=== PATIENT | male | born 1985 | race Caucasian/White ===

== ENCOUNTER 2017-11-07 20:34 | Emergency (ER) | payer BC ==
[2017-11-07 20:52] VITALS: BP 125/85; O2SAT 98
--- NOTE | 2017-11-07 21:12 | ERPHSYRPT ---
- History of Present Illness Time Seen by Provider: 11/07/17 21:00 Source: patient Exam Limitations: clinical condition Patient Subjective Stated Complaint: pt states that he has been having pain in his lt leg for the past few days and the pain started at the back of his knee and has moved u p to groin area. describes pain as tightness Triage Nursing Assessment: pt alert and oriented, answers questions approp. pt ambulatory with steady gait noted, respirations nonlabored with lungs cta. pedal pulse, cap refill, sensation to lle wnl. Physician History: PATIENT COMPLAINS OF PAIN IN HIS LEFT CALF INITIALLY 2 WEEK AGO, PAIN HAS MIGRATED BEHIND HIS LEFT KNEE AND NOW LOCALIZED TO HIS INNER LEFT THIGH. DENIES DYSPNEA, CHEST PAIN, THIGH, KNEE OR CALF SWELLING. STATES PAIN SCALE 2/ 10. Method of Injury: unknown Occurred: other (2 WEEKS AGO) Quality: constant Severity of Pain-Max: mild Severity of Pain-Current: mild Lower Extremities Pain: thigh: left Modifying Factors: Improves With: nothing Associated Symptoms: none Allergies/Adverse Reactions: No Known Drug Allergies Allergy (Verified 11/07/17 20:52) Hx Tetanus, Diphtheria Vaccination/Date Given: No Hx Influenza Vaccination/Date Given: No Hx Pneumococcal Vaccination/Date Given: No Immunizations Up to Date: No - Past Medical History Pertinent Past Medical History: No - Past Surgical History Past Surgical History: Yes - Social History Smoking Status: Never smoker Exposure to second hand smoke: No Drug Use: none Patient Lives Alone: No - Nursing Vital Signs Nursing Vital Signs: Initial Vital Signs Temperature 98.9 F 11/07/17 20:41 Pulse Rate 94 H 11/07/17 20:41 Respiratory Rate 18 11/07/17 20:41 Blood Pressure 125/85 11/07/17 20:41 O2 Sat by Pulse Oximetry 98 11/07/17 20:41 Pain Scale Pain Intensity 2 - Physical Exam General Appearance: no apparent distress Cardiovascular/Respiratory Exam: chest non-tender Legs Exam: left leg: normal inspection, soft tissue tenderness (MINIMAL POINT TENDERNESS OVER MEDIAL PROXIMAL THIGH, NO SWELLING OR ECCHYMOSIS, LEFT CALF WITHOUT TENDERNESS OR SWELLING, NEG HOMANS SIGN) Knees Exam: left knee: normal range of motion (NO JOINT LAXITY OR POLPITEAL TENDERNESS) Foot Exam: left foot: other (POPLITEAL AND PEDIS PULSES 2+) Mental Status Exam: alert, oriented x 3, cooperative SpO2 Interpretation: normal SpO2: 98 Oxygen Delivery: Room Air - Radiology Ultrasound Exam Venous Lower Extremity Ultrasound: discussed w/radiologist (NO EVIDENCE OF DVT, THICKENING OF LEFT GREATER SAPHENOUS VEIN CONSISTENT WITH PHELBITIS) Ordered Tests: Active Orders 24 hr Category Date Time Status VENOUS UNILAT/LIMITED EXTREMIT [US] Stat Exams 11/07/17 Ordered Medication Summary Discontinued Medications Generic Name Dose Route Start Last Admin Trade Name Freq PRN Reason Stop Dose Admin Cephalexin HCl 500 mg 11/07/17 22:46 Keflex 500 Mg PO 11/07/17 22:47 STAT ONE Ibuprofen 600 mg 11/07/17 22:46 Motrin 600 Mg PO 11/07/17 22:47 STAT ONE - Progress Progress: pain not gone completely Progress Note: 11/07/17 22:45 KEFLEX 500MG, MOTRIN 600MG ORALLY Counseled pt/family regarding: diagnosis, rad results - Departure Time of Disposition: 23:00 Departure Disposition: Home Clinical Impression: PHLEBITIS LEFT LOWER EXTREMITY Condition: Stable Critical Care Time: No Referrals: FRANTZ BATEMAN [Primary Care Provider] - Additional Instructions: BEGIN MOTRIN 600MG EVERY 6 HOURS NEEDED FOR PAIN. ANTIBIOTIC KEFLEX 500MG EVERY 8 HOURS FOR 10 DAYS. WATCH FOR SIGNS OF INFECTION, RED STREAKS OR ONSET OF FEVER OR CHILLS. CONSULT A PRIMARY CARE PROVIDER FOR FOLLOWUP. Prescriptions: Ibuprofen 600 mg PO Q6HPRN PRN #20 tablet PRN Reason: Pain Cephalexin Mh 500 mg [Keflex 500 mg] 500 mg PO TID #30 capsule
[2017-11-07 22:37] VITALS: PULSE 73
[2017-11-07] MEDS ORDERED: KEFLEX 500 MG PO ONE (22:46)
[2017-11-07] MEDS ORDERED: MOTRIN 600 MG PO ONE (22:46)
[2017-11-07] MEDS ORDERED: KEFLEX 500 MG ONE (22:52)
[2017-11-07] MEDS ORDERED: MOTRIN 600 MG ONE (22:52)
--- NOTE | 2017-11-08 08:49 | XRAY ---
Indication: Left thigh pain. Two-dimensional sonogram and color Doppler imaging of the major venous vessels of the left leg was performed. Comparison: None No thrombus seen in the examined deep venous vessels of the left leg. Patent veins demonstrates normal compressibility. Venous waveforms are normal with and without augmentation. Greater saphenous vein at the level of the thigh demonstrates wall thickening narrowing the lumen favoring phlebitis. Impression: Left leg negative for DVT. Incidental greater saphenous vein phlebitis. Comment: Preliminary report was given.
== END 2017-11-07 23:03 | disposition home or self-care (01) ==
LOC: ED 20:34
DX: I80.02 Phlebitis and thrombophlebitis of superficial vessels of left lower extremity (principal)
CPT/HCPCS: 93971; 99283; A9270-GY